=== PATIENT | male | born 1995 | race African-American/Black ===

== ENCOUNTER 2016-12-06 14:40 | Emergency (ER) | payer OTHER ==
[2016-12-06 14:06] LABS: INFLUENZA A SCREEN NEGATIVE (NEGATIVE); INFLUENZA B SCREEN NEGATIVE (NEGATIVE)
== END 2016-12-06 14:50 | disposition home or self-care (01) ==
LOC: ER 14:40
PROVIDERS: Nurse Practitioner Acute Care
DX: J02.0 Streptococcal pharyngitis (principal); Z86.73 Personal history of transient ischemic attack (TIA), and cerebral infarction without residual deficits
CPT/HCPCS: 87804; 87880; 99284